=== PATIENT | female | born 1960 | race Caucasian/White ===

== ENCOUNTER → 2017-12-21 | Outpatient (CLI) | payer OTHER | END | disposition home or self-care (01) | LOC: CFH 07:12 | PROVIDERS: ATTEND Family Medicine | DX: Z12.31 Encounter for screening mammogram for malignant neoplasm of breast (principal) | CPT/HCPCS: 77063; 77067 ==

== ENCOUNTER → 2019-02-24 | Outpatient (CLI) | payer OTHER | END | disposition home or self-care (01) | LOC: CFH 09:49 | PROVIDERS: ATTEND Obstetrics & Gynecology Gynecology | DX: Z12.31 Encounter for screening mammogram for malignant neoplasm of breast (principal) | CPT/HCPCS: 77063; 77067 ==

== ENCOUNTER 2019-07-30 15:04 | Outpatient (CLI) | payer OTHER ==
[2019-07-30 16:22] LABS: BASOPHILS # (AUTO) 0.03 x10^3/uL (0-0.1); BASOPHILS % (AUTO) 0 % (0-1); EOSINOPHILS # (AUTO) 0.06 x10^3/uL (0-0.4); EOSINOPHILS % (AUTO) 1 % (1-7); LYMPHOCYTES # (AUTO) 1.77 x10^3/uL (1-3.4); LYMPHOCYTES % (AUTO) 29 % (22-44); MD NO; MEAN CORPUSCULAR HEMOGLOBIN 31.9 pg (27.0-34.8); MEAN PLATELET VOLUME 6.5 fL (7.4-10.4); MONOCYTES # (AUTO) 0.49 x10^3/uL (0.2-0.8); MONOCYTES % (AUTO) 8 % (2-9); NEUTROPHILS # (AUTO) 3.67 x10^3/uL (1.8-6.8); NEUTROPHILS % (AUTO) 61 % (42-75); PLATELET COUNT 206 x10^3/uL (130-400); RED BLOOD COUNT 4.95 x10^6/uL (3.82-5.3); RED CELL DISTRIBUTION WIDTH 13.3 % (9.6-15.2)
[2019-07-30 16:31] LABS: INTERNATIONAL NORMALIZED RATIO 0.93 (0.93-1.1); PROTHROMBIN TIME 9.8 Seconds (9.6-11.5)
[2019-07-30 16:32] LABS: ANION GAP 5 mmol/L (5-15); CALCIUM 10.7 mg/dL (8.5-10.1); CHLORIDE 109 mmol/L (98-107); CREATININE 0.68 mg/dL (0.55-1.02)
[2019-07-30] MEDS ORDERED: MULT-658 PO (16:36)
[2019-07-30] MEDS ORDERED: ESTR0.5T PO (16:36)
[2019-07-30] MEDS ORDERED: [UNRECOGNIZED DRUG - OTHER] PO (16:36)
[2019-07-30] MEDS ORDERED: ZINC PO ×2 (16:36)
[2019-07-30] MEDS ORDERED: ASPI-496 PO (16:36)
[2019-07-30] MEDS ORDERED: [UNRECOGNIZED DRUG - CODE] PO (16:36)
[2019-07-30] MEDS ORDERED: VITAMIN K2 PO (16:36)
[2019-07-30] MEDS ORDERED: OLIV250C PO (16:36)
[2019-07-30] MEDS ORDERED: GARLIC EXTRACT (16:36)
[2019-07-30] MEDS ORDERED: DOCO100C PO (16:36)
[2019-07-30] MEDS ORDERED: MAG PO (16:36)
[2019-07-30] MEDS ORDERED: [UNRECOGNIZED DRUG - OTHER] PO (16:36)
[2019-07-30] MEDS ORDERED: MELO15TA24 PO (16:36)
[2019-07-30] MEDS ORDERED: HYALURONIC ACID PO (16:36)
[2019-07-30] MEDS ORDERED: CHOL100012 PO (16:36)
[2019-07-30] MEDS ORDERED: [UNRECOGNIZED DRUG - OTHER] PO (16:36)
[2019-07-30] MEDS ORDERED: ASTAXANTHIN PO (16:36)
[2019-07-30] MEDS ORDERED: OMEG-26 PO (16:36)
[2019-07-30] MEDS ORDERED: MEDR2.5T PO (16:36)
[2019-07-30] MEDS ORDERED: [UNRECOGNIZED DRUG - OTHER] PO (16:36)
[2019-07-30] MEDS ORDERED: [UNRECOGNIZED DRUG - OTHER] PO (16:36)
[2019-07-30] MEDS ORDERED: LUTE1CAP PO (16:36)
[2019-07-30] MEDS ORDERED: VITAMIN E PO (16:36)
[2019-07-30] MEDS ORDERED: VITAMIN C PO (16:36)
[2019-07-30] MEDS ORDERED: [UNRECOGNIZED DRUG - OTHER] PO (16:36)
[2019-07-30 17:07] LABS: HEMOGLOBIN A1C 5.1 % (4.2-6.3)
== END 2019-07-30 23:59 | disposition home or self-care (01) ==
LOC: STAR 15:04
PROVIDERS: ATTEND Orthopaedic Surgery
DX: Z01.818 Encounter for other preprocedural examination (principal); M16.11 Unilateral primary osteoarthritis, right hip; M25.551 Pain in right hip; Z87.891 Personal history of nicotine dependence; Z88.8 Allergy status to other drugs, medicaments and biological substances; Z88.1 Allergy status to other antibiotic agents
CPT/HCPCS: 36415; 80048; 83036; 85025; 85610; 85730; 87081; 93005

== ENCOUNTER 2019-08-13 06:18 | Inpatient (IN) | payer OTHER ==
[~2019-08-13] VITALS: Ht 167.6 cm; Wt 102.0 kg
[~2019-08-13 06:18] MED LIST: ASPI-496 PO; ASTAXANTHIN PO; CHOL100012 PO; DOCO100C PO; ESTR0.5T PO; GARLIC EXTRACT; HYALURONIC ACID PO; LUTE1CAP PO; MAG PO; MEDR2.5T PO; MELO15TA24 PO; MULT-658 PO; OLIV250C PO; OMEG-26 PO; VITAMIN C PO; VITAMIN E PO; VITAMIN K2 PO; ZINC PO; [UNRECOGNIZED DRUG - CODE] PO; [UNRECOGNIZED DRUG - OTHER] PO; [UNRECOGNIZED DRUG - OTHER] PO; [UNRECOGNIZED DRUG - OTHER] PO; [UNRECOGNIZED DRUG - OTHER] PO; [UNRECOGNIZED DRUG - OTHER] PO; [UNRECOGNIZED DRUG - OTHER] PO
[2019-08-13] MEDS ORDERED: DIPHENHYDRAMINE 25 MG CAPSULE PO PRN (06:30)
[2019-08-13] MEDS ORDERED: SENNA/DOCUSATE TABLET PO PRN (06:30)
[2019-08-13] MEDS ORDERED: MAGNESIUM HYDROXIDE 8%, 30ML UDC PO PRN (06:30)
[2019-08-13] MEDS ORDERED: HYDROcodone/APAP 5/325 TABLET PO PRN (06:30)
[2019-08-13] MEDS ORDERED: ONDANSETRON 2MG/ML, 2ML IV PRN ×2 (06:30→07:30)
[2019-08-13] MEDS ORDERED: BISACODYL 10 MG SUPP PR PRN (06:30)
[2019-08-13] MEDS ORDERED: ACETAMINOPHEN 650 MG/20.3 ML UDC PO PRN (06:30)
[2019-08-13] MEDS ORDERED: ONDANSETRON 4 MG TABLET PO PRN (06:30)
[2019-08-13] MEDS ORDERED: SCOPOLAMINE PATCH, 1.5MG PATCH.TD72 TD ONE (06:30)
[2019-08-13] MEDS ORDERED: LACTATED RINGERS 1,000 ML IV SCH (06:54)
[2019-08-13] MEDS ORDERED: ACETAMINOPHEN 500 MG TABLET PO ONE (07:00)
[2019-08-13] MEDS ORDERED: GABAPENTIN 300 MG CAPSULE PO ONE (07:00)
[2019-08-13 07:04] VITALS: BP 142/83
[2019-08-13] MEDS ORDERED: TRANEXAMIC ACID 100 MG/ML, 10ML ONE (07:13)
[2019-08-13] MEDS ORDERED: KETOROLAC 60 MG/2 ML ONE (07:13)
[2019-08-13] MEDS ORDERED: EPINEPHRINE 1 MG/ML, 1ML ONE (07:14)
[2019-08-13] MEDS ORDERED: VANCOMYCIN 1,000 MG ONE (07:14)
[2019-08-13] MEDS ORDERED: SODIUM CHLORIDE 0.9% 50 ML ONE (07:14)
[2019-08-13] MEDS ORDERED: hydrALAzine 20 MG/ML, 1ML IV PRN (07:30)
[2019-08-13] MEDS ORDERED: OXYcodone 5 MG/5 ML ORAL.SOL UDC PO PRN (07:30)
[2019-08-13] MEDS ORDERED: LORazepam 2 MG/ML, 1ML IVPush PRN (07:30)
[2019-08-13] MEDS ORDERED: DIPHENHYDRAMINE 50 MG/ML, 1ML IVPush PRN (07:30)
[2019-08-13] MEDS ORDERED: HYDROmorphone 2 MG/ML, 1ML IVPush PRN (07:30)
[2019-08-13] MEDS ORDERED: FENTANYL PF 100 MCG/2ML IV PRN (07:30)
[2019-08-13] MEDS ORDERED: LABETALOL 5MG/ML, 20ML IV PRN (07:30)
[2019-08-13] MEDS ORDERED: FENTANYL PF 250 MCG/5ML ONE (07:44)
[2019-08-13] MEDS ORDERED: MIDAZOLAM 1 MG/ML, 2ML ONE (07:44)
[2019-08-13] MEDS ORDERED: ROCURONIUM 10MG/ML,5ML ONE (07:46)
[2019-08-13] MEDS ORDERED: LIDOCAINE-MPF 2% ,5ML ONE ×2 (07:47→07:48)
[2019-08-13] MEDS ORDERED: CEFAZOLIN 1,000 MG ONE ×2 (07:48)
[2019-08-13] MEDS ORDERED: PROPOFOL 10 MG/ML, 20ML ONE (07:49)
[2019-08-13] MEDS ORDERED: ONDANSETRON 2MG/ML, 2ML ONE (08:15)
[2019-08-13] MEDS ORDERED: ROPIvacaine/PF 0.5%, 30 ML ONE (08:17)
[2019-08-13] MEDS ORDERED: GLYCOPYRROLATE 0.2MG/1ML, 5ML ONE (08:36)
[2019-08-13] MEDS ORDERED: NEOSTIGMINE 1 MG/ML, 10ML ONE (08:36)
[2019-08-13] MEDS ORDERED: TRANEXAMIC ACID 1,000 MG in SODIUM CHLORIDE 0.9% 100 ML IV STA (09:24)
[2019-08-13] MEDS ORDERED: MEPERIDINE/PF 25MG/ML,1ML ONE ×2 (10:10→11:39)
[2019-08-13] MEDS: MEPERIDINE/PF 25MG/ML,1ML IVPush PRN ×2 (10:15→11:41)
[2019-08-13 12:15] VITALS: BP 108/61
[2019-08-13 12:32] VITALS: BP 108/61
[2019-08-13] MEDS: DOCUSATE 100 MG CAPSULE PO SCH ×2 (12:35→20:22)
[2019-08-13] MEDS: OXYcodone IR 5MG TABLET PO PRN ×2 (13:30→20:22)
[2019-08-13] MEDS: NS + 20MEQ KCL 1,000 ML IV SCH (15:35)
[2019-08-13] MEDS: CEFAZOLIN PMX 2GM/50ML 50 ML IVPB SCH ×2 (15:35→23:11)
[2019-08-13] MEDS: ASPIRIN 81 MG TABLET EC PO SCH (17:22)
[2019-08-13 19:44] VITALS: BP 121/77
[2019-08-13] MEDS ORDERED: ZOLPIDEM 5MG TABLET PO PRN (21:00)
[2019-08-13 23:40] VITALS: BP 111/66
[2019-08-14] MEDS: OXYcodone IR 5MG TABLET PO PRN ×3 (00:32→10:53)
[2019-08-14] MEDS: NS + 20MEQ KCL 1,000 ML IV SCH (03:12)
[2019-08-14 04:00] VITALS: BP 100/72
[2019-08-14] MEDS ORDERED: DEXAMETHASONE 4 MG/ML, 1ML IVPush SCH (06:00)
[2019-08-14] MEDS: ASPIRIN 81 MG TABLET EC PO SCH (06:03)
[2019-08-14] MEDS: DOCUSATE 100 MG CAPSULE PO SCH (07:30)
[2019-08-14] MEDS ORDERED: OXYC5TAB3 PO (08:36)
[2019-08-14] MEDS ORDERED: TRAM50TA2 PO (08:37)
[2019-08-14] MEDS ORDERED: MELO7.5T31 PO (08:38)
[2019-08-14] MEDS ORDERED: ASPI-515 PO (08:47)
[2019-08-14 08:54] VITALS: BP 109/70
[2019-08-14 13:52] VITALS: BP 134/76
== END 2019-08-14 14:45 | disposition home or self-care (01) | DRG 470 ==
LOC: ORIP 06:18 → UNDOADMIN 06:18 → ORIP 06:43 → 4NE 12:14 → DCLOUNGE 08-14 14:25
PROVIDERS: ADMIT Orthopaedic Surgery; ATTEND Orthopaedic Surgery
PROC: 0SR906A Replacement of Right Hip Joint with Oxidized Zirconium on Polyethylene Synthetic Substitute, Uncemented, Open Approach (ICD-10-PCS; principal; 2019-08-13 08:15)
DX: M16.11 Unilateral primary osteoarthritis, right hip (principal)
CPT/HCPCS: 36415; 72170; 73501; 76000; J3490; 85014; 85018; C1713; G0378; J0171; J0690; J1100; J1885; J2250; J2405; J2704; J2710; J2795; J3010; J3370; J3480; C1776; J2175

== ENCOUNTER → 2019-10-12 | Outpatient (CLI) | payer OTHER ==
[~2019-10-12] MED LIST changes: +ASPI-515 PO; +MELO7.5T31 PO; +OXYC5TAB3 PO; +TRAM50TA2 PO
== END | disposition home or self-care (01) ==
LOC: RAD 12:18
PROVIDERS: ATTEND Physician Assistant
DX: R05 Cough (principal); M41.84 Other forms of scoliosis, thoracic region
CPT/HCPCS: 71046

== ENCOUNTER → 2020-03-24 | Outpatient (CLI) | payer OTHER | END | disposition home or self-care (01) | LOC: CFH 07:03 | PROVIDERS: ATTEND Obstetrics & Gynecology Gynecology | DX: Z12.31 Encounter for screening mammogram for malignant neoplasm of breast (principal) | CPT/HCPCS: 77063; 77067 ==

== ENCOUNTER → 2020-08-23 | Outpatient (CLI) | payer OTHER | END | disposition home or self-care (01) | LOC: CFH 12:01 | PROVIDERS: ATTEND Internal Medicine Cardiovascular Disease | DX: R01.1 Cardiac murmur, unspecified (principal); R06.02 Shortness of breath | CPT/HCPCS: 78452; 93017; A9502 ==

== ENCOUNTER → 2020-09-09 | Outpatient (CLI) | payer OTHER | END | disposition home or self-care (01) | LOC: CFH 14:47 | PROVIDERS: ATTEND Internal Medicine Cardiovascular Disease | DX: I08.8 Other rheumatic multiple valve diseases (principal); E78.5 Hyperlipidemia, unspecified; Z87.891 Personal history of nicotine dependence | CPT/HCPCS: 93306 ==

== ENCOUNTER → 2020-11-29 | Outpatient (CLI) | payer OTHER ==
[~2020-11-29] MED LIST changes: -ASPI-515 PO; +ASPI-963 PO; -OXYC5TAB3 PO; +OXYC5TAB98 PO
== END | disposition home or self-care (01) ==
LOC: CFH 13:35
PROVIDERS: ATTEND Family Medicine
DX: S00.83XA Contusion of other part of head, initial encounter (principal); S07.0XXA Crushing injury of face, initial encounter; W19.XXXA Unspecified fall, initial encounter; M54.2 Cervicalgia; Y93.89 Activity, other specified; Y92.89 Other specified places as the place of occurrence of the external cause; Y99.8 Other external cause status
CPT/HCPCS: 70486

== ENCOUNTER → 2020-12-01 | Outpatient (CLI) | payer OTHER | END | disposition home or self-care (01) | LOC: CFH 09:14 | PROVIDERS: ATTEND Family Medicine | DX: S07.0XXA Crushing injury of face, initial encounter (principal); W19.XXXA Unspecified fall, initial encounter; M54.2 Cervicalgia; M54.9 Dorsalgia, unspecified; Y93.89 Activity, other specified; Y92.89 Other specified places as the place of occurrence of the external cause; Y99.8 Other external cause status | CPT/HCPCS: 70450 ==

== ENCOUNTER → 2021-04-18 | Outpatient (CLI) | payer OTHER | END | disposition home or self-care (01) | LOC: CFH 06:59 | PROVIDERS: ATTEND Obstetrics & Gynecology Gynecology | DX: Z12.31 Encounter for screening mammogram for malignant neoplasm of breast (principal) | CPT/HCPCS: 77063; 77067 ==